=== PATIENT | female | born 1995 | race African-American/Black ===

== ENCOUNTER 2018-05-29 14:30 | Emergency (ER) | payer SELFPAY ==
[2018-05-29] MEDS ORDERED: HYDROCODONE/APAP 7.5/325 MG TAB ONE (15:47)
[2018-05-29] MEDS ORDERED: SMZ./TMP. 800/160 MG TABLET ONE (15:47)
[2018-05-29] MEDS ORDERED: LIDOCAINE 1% MPF 30 ML VIAL ONE (15:48)
--- NOTE | 2018-05-29 16:27 | EDPHYS ---
Physician Documentation [facility] Name: Donald Beebe Age: 22 yrs Sex: Female : 1995 Arrival Date: 05/29/2018 Time: 14:31 Bed 30 Private MD: ED Physician Angel Luis Rosado HPI: 05/29 15:45 This 22 yrs old Black Female presents to ER via EMS with complaints of Abdominal Pain. kb 15:45 The patient presents with an abscess of the right labia majora. Description: kb erythematous, swollen. Onset: The symptoms/episode began/occurred 1.5 week(s) ago. Possible cause(s): unknown. Associated signs and symptoms: Pertinent positives: swelling, Pertinent negatives: discharge, drainage, erythema, foreign body sensation, fever, headache, nausea, shortness of breath, vomiting. Modifying factors: the symptoms are alleviated by nothing, the symptoms are aggravated by nothing. Severity of symptoms: At their worst the symptoms were moderate, in the emergency department the symptoms are unchanged. The patient has not experienced similar symptoms in the past. The patient has not recently seen a physician. 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 - Social history:: Smoking status: unknown. - Ebola Screening: : No symptoms or risks identified at this time. ROS: 15:45 Constitutional: Negative for fever, chills, and weight loss, Cardiovascular: Negative kb for chest pain, palpitations, and edema, Respiratory: Negative for shortness of breath, cough, wheezing, and pleuritic chest pain, Abdomen/GI: Negative for abdominal pain, nausea, vomiting, diarrhea, and constipation, MS/Extremity: Negative for injury and deformity, Neuro: Negative for headache, weakness, numbness, tingling, and seizure. 15:45 Skin: Positive for abscess, of the right labia majora. Exam: 15:45 Constitutional: This is a well developed, well nourished patient who is awake, alert, kb and in no acute distress. Head/Face: Normocephalic, atraumatic. Chest/axilla: Normal chest wall appearance and motion. Nontender with no deformity. No lesions are appreciated. Cardiovascular: Regular rate and rhythm with a normal S1 and S2. No gallops, murmurs, or rubs. Normal PMI, no JVD. No pulse deficits. Respiratory: Lungs have equal breath sounds bilaterally, clear to auscultation and percussion. No rales, rhonchi or wheezes noted. No increased work of breathing, no retractions or nasal flaring. Abdomen/GI: Soft, non-tender, with normal bowel sounds. No distension or tympany. No guarding or rebound. No evidence of tenderness throughout. MS/ Extremity: Pulses equal, no cyanosis. Neurovascular intact. Full, normal range of motion. Neuro: Awake and alert, GCS 15, oriented to person, place, time, and situation. Cranial nerves II-XII grossly intact. Motor strength 5/5 in all extremities. Sensory grossly intact. Cerebellar exam normal. Normal gait. 15:45 Skin: abscess, that is moderate sized, of the right labia majora, with fluctuance. Vital Signs: 15:00 BP 146 / 70; Pulse 77; Resp 17; Temp 97.7; Pulse Ox 98% on R/A; Weight 113.4 kg; Pain sg 6/10; 17:02 BP 130 / 70; Pulse 77; Resp 18; Pulse Ox 100% on R/A; mg2 Procedures: 16:23 I \T\ D: Incision and drainage was performed for an abscess of the right Bartholin's kb gland. Prepped with Betadine, Anesthetized with 3 ml's 1% Lidocaine. Incised with #11 blade. Drained moderate amount serosanguinous fluid. Packed with word catheter. the patient tolerated the procedure well, procedure completed by KISHAN Alexis. MICHELE student. MDM: 15:17 Patient medically screened. kb 15:46 Data reviewed: vital signs, nurses notes. Data interpreted: Pulse oximetry: on room air kb is 98 %. Interpretation: normal. 16:22 Counseling: I had a detailed discussion with the patient and/or guardian regarding: the kb historical points, exam findings, and any diagnostic results supporting the discharge/admit diagnosis, the need for outpatient follow up, a general surgeon, an OB/Gyne specialist, to return to the emergency department if symptoms worsen or persist or if there are any questions or concerns that arise at home. 05/29 15:42 Order name: Urine Dipstick--Ancillary (enter results) eb 05/29 15:42 Order name: Urine --Ancillary (enter results) eb 05/29 15:29 Order name: Urine Dipstick-Ancillary (obtain specimen); Complete Time: 15:38 kb 05/29 15:29 Order name: Urine Test (obtain specimen); Complete Time: 15:38 kb 05/29 15:29 Order name: I\T\D Setup; Complete Time: 15:38 kb Administered Medications: 15:44 Drug: Bactrim (160 mg-800 mg (DS) 1 tablet Route: PO; mg2 16:50 Follow up: Response: No adverse reaction mg2 15:44 Drug: Norlina (7.5 mg-325 mg) 1 tabs Route: PO; mg2 16:50 Follow up: Response: No adverse reaction mg2 16:35 Drug: Lidocaine (1 %) 1 vials Volume: 5 ml; Route: Infiltration; mg2 16:49 Follow up: Response: No adverse reaction; Marked relief of symptoms mg2 16:49 Drug: Zofran 4 mg Route: PO; mg2 16:49 Follow up: Response: No adverse reaction; Medication administered at discharge. mg2 Disposition: 18:36 Co-signature as Attending Physician, Angel Luis Rosado MD. Disposition: 05/29/18 16:26 Discharged to Home. Impression: Abscess of Bartholin's gland. - Condition is Stable. - Discharge Instructions: Bartholin Cyst or Abscess, [id number]. - Prescriptions for Bactrim DS 800- 160 mg Oral Tablet - take 1 tablet by ORAL route every 12 hours for 10 days; 20 tablet. - Medication Reconciliation Form, Thank You Letter, Antibiotic Education, Prescription Opioid Use form. - Follow up: Emergency Department; When: As needed; Reason: Worsening of condition. Follow up: Private Physician; When: 2 - 3 days; Reason: Recheck today's complaints, Continuance of care, Re-evaluation by your physician. Signatures: Dispatcher [employer] EDSelina Mcdaniel FNP-C FNP-Ckb Gay, Steven, RN RN sg Angel Luis Rosado MD MD Fabio Pendleton RN RN mg2 Corrections: (The following items were deleted from the chart) 15:51 15:31 Allergies: No Known Allergies; sg mg2 16:27 16:23 I \T\ D: Incision and drainage was performed for an abscess of the right kb Bartholin's gland. Prepped with Betadine, Anesthetized with 3 ml's 1% Lidocaine. Incised with #11 blade. Drained moderate amount serosanguinous fluid. Packed with word catheter. the patient tolerated the procedure well, kb 17:03 16:26 05/29/2018 16:26 Discharged to Home. Impression: Abscess of Bartholin's gland. mg2 Condition is Stable. Forms are Medication Reconciliation Form, Thank You Letter, Antibiotic Education, Prescription Opioid Use. Follow up: Emergency Department; When: As needed; Reason: Worsening of condition. Follow up: Private Physician; When: 2 - 3 days; Reason: Recheck today's complaints, Continuance of care, Re-evaluation by your physician. kb
--- NOTE | 2018-05-29 16:27 | ER ---
Nurse's Notes [facility] Name: Donald Beebe Age: 22 yrs Sex: Female : 1995 Arrival Date: 05/29/2018 Time: 14:31 Bed 30 Private MD: Diagnosis: Abscess of Bartholin's gland Presentation: 05/29 14:58 Presenting complaint: EMS states: She has complaints of inner and outter vaginal bumps sg that are getting larger, reports abd pain above belly button, pt denied any trauma/ injury to the private area. reports abnormal vaginal discharge. Transition of care: patient was not received from another setting of care. Onset of symptoms was May 29, 2018. Risk Assessment: Do you want to hurt yourself or someone else? Patient reports no desire to harm self or others. Care prior to arrival: None. 14:58 Method Of Arrival: EMS: [facility] sg 14:58 Acuity: DANIEL 3 sg 16:53 Initial Sepsis Screen: Does the patient meet any 2 criteria? No. Patient's initial mg2 sepsis screen is negative. Does the patient have a suspected source of infection? No. Patient's initial sepsis screen is negative. 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 - Social history:: Smoking status: unknown. - Ebola Screening: : No symptoms or risks identified at this time. Screenin:48 Abuse screen: Denies threats or abuse. Denies injuries from another. Nutritional mg2 screening: No deficits noted. Tuberculosis screening: No symptoms or risk factors identified. Fall Risk None identified. Assessment: 15:45 General: Appears in no apparent distress. comfortable, Behavior is calm, cooperative. mg2 Pain: Complains of pain in pelvis and right labia majora and groin Pain does not radiate. Pain currently is 5 out of 10 on a pain scale. Quality of pain is described as aching, Pain began gradually, Is intermittent. Neuro: Level of Consciousness is awake, alert, obeys commands, Oriented to person, place, time, situation. Cardiovascular: Capillary refill < 3 seconds Patient's skin is warm and dry. Respiratory: Airway is patent Respiratory effort is even, unlabored, Respiratory pattern is regular, symmetrical. GI: Abdomen is round non-distended, Reports lower abdominal pain. : No signs and/or symptoms were reported regarding the genitourinary system. Urine is clear. EENT: No signs and/or symptoms were reported regarding the EENT system. Derm: Skin is intact, Skin is pink, warm \T\ dry. normal. Musculoskeletal: No signs and/or symptoms reported regarding the musculoskeletal system. 16:52 Reassessment: Patient appears in no apparent distress at this time. Patient and/or mg2 family updated on plan of care and expected duration. Pain level reassessed. Patient is alert, oriented x 3, equal unlabored respirations, skin warm/dry/pink. 16:53 GI: Bowel sounds Abd is soft and non tender. mg2 Vital Signs: 15:00 BP 146 / 70; Pulse 77; Resp 17; Temp 97.7; Pulse Ox 98% on R/A; Weight 113.4 kg; Pain sg 6/10; 17:02 BP 130 / 70; Pulse 77; Resp 18; Pulse Ox 100% on R/A; mg2 ED Course: 14:31 Patient arrived in ED. rg4 15:00 Triage completed. sg 15:00 Arm band placed on. EKG completed in triage. Results shown to MD. sg 15:17 Selina Guzman FNP-C [facility]. kb 15:17 Angel Luis Rosado MD is Attending Physician. kb 15:37 Fabio Pendleton RN is Primary Nurse. mg2 15:49 Patient did not have IV access during this emergency room visit. mg2 16:50 Assist provider with I \T\ D: of an abscess on Bartholin's gland Set up I\T\D tray. mg 2 Performed by eSlina TAVERAS Wound packed. Dressing with 4X4s, Patient tolerated well. 16:53 Patient has correct armband on for positive identification. Pulse ox on. NIBP on. mg2 Administered Medications: 15:44 Drug: Bactrim (160 mg-800 mg (DS) 1 tablet Route: PO; mg2 16:50 Follow up: Response: No adverse reaction mg2 15:44 Drug: [place] (7.5 mg-325 mg) 1 tabs Route: PO; mg2 16:50 Follow up: Response: No adverse reaction mg2 16:35 Drug: Lidocaine (1 %) 1 vials Volume: 5 ml; Route: Infiltration; mg2 16:49 Follow up: Response: No adverse reaction; Marked relief of symptoms mg2 16:49 Drug: Zofran 4 mg Route: PO; mg2 16:49 Follow up: Response: No adverse reaction; Medication administered at discharge. mg2 Outcome: 16:26 Discharge ordered by . gerald 16:52 Discharged to home ambulatory. mg2 16:52 Condition: good 16:52 Discharge instructions given to patient, Instructed on discharge instructions, follow up and referral plans. medication usage, Demonstrated understanding of instructions, follow-up care, medications, Prescriptions given X 1. 17:03 Patient left the ED. mg2 Signatures: Selina Guzman, FILLER SHREDDER-C FILLER SHREDDER-Rom Taylor, RN RN Alejandra Holland rg4 Fabio Pendleton RN RN mg2 Corrections: (The following items were deleted from the chart) 15:51 15:31 Allergies: No Known Allergies; mg2
[2018-05-29] MEDS ORDERED: ONDANSETRON 4 MG (ODT) TAB ONE (16:50)
[2018-05-29 20:28] LABS: Urine Blood NEGATIVE (NEG); Urine Glucose NEGATIVE (NEG); Urine Protein 1+ (NEG)
== END 2018-05-29 17:03 | disposition home or self-care (01) ==
LOC: ER 14:30
PROC: 0U9L0ZZ Drainage of Vestibular Gland, Open Approach (ICD-10-PCS; principal; 2018-05-29)
DX: N75.1 Abscess of Bartholin's gland (principal); Z88.1 Allergy status to other antibiotic agents
CPT/HCPCS: 81003; 81025; 99284

== ENCOUNTER 2019-02-19 11:34 | Emergency (ER) | payer SELFPAY ==
[2019-02-19] MEDS ORDERED: hydrOXYzine HCl 25 MG TAB ONE (12:05)
--- NOTE | 2019-02-19 12:05 | ER ---
Nurse's Notes [facility] Name: Donald Beebe Age: 23 yrs Sex: Female : 1995 Arrival Date: 02/19/2019 Time: 11:35 Bed 7 Private MD: Diagnosis: Panic disorder [episodic paroxysmal anxiety] without agoraphobia Presentation: 02/19 11:43 Presenting complaint: EMS states: pt was picked up by [employer],had a couple warrants, pt iw became very anxious and started hyperventilating. Transition of care: patient was not received from another setting of care. Onset of symptoms was February 19, 2019. Risk Assessment: Do you want to hurt yourself or someone else?. Initial Sepsis Screen: Does the patient meet any 2 criteria? No. Patient's initial sepsis screen is negative. Does the patient have a suspected source of infection? No. Patient's initial sepsis screen is negative. Care prior to arrival: None. 11:43 Method Of Arrival: EMS: [facility] iw 11:43 Acuity: DANIEL 3 iw Triage Assessment: 11:43 General: Behavior is anxious. iw 12:00 General: Appears in no apparent distress. iw 12:10 Respiratory: Reports Onset: The symptoms/episode began/occurred the patient reports iw symptoms have resolved. 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 - Ebola Screening: : Patient negative for fever greater than or equal to 101.5 degrees Fahrenheit, and additional compatible Ebola Virus Disease symptoms Patient denies exposure to infectious person Patient denies travel to an Ebola-affected area in the 21 days before illness onset No symptoms or risks identified at this time. - Social history:: Smoking status: unknown. Screenin:59 Abuse screen: Denies threats or abuse. Denies injuries from another. Nutritional iw screening: No deficits noted. Tuberculosis screening: No symptoms or risk factors identified. Fall Risk None identified. Assessment: 11:43 Reassessment: pt appears to be having a panic attack, hyperventilating, pt refuses to iw wear NRB mask, pt calmed down after a few minutes, officer remains at bedside. 11:45 Pain: Denies pain. Cardiovascular: Rhythm is regular. Respiratory: Airway is patent iw Respiratory effort is even, Breath sounds are clear bilaterally. 11:58 Reassessment: pt appears anxious again, hyperventilating, verbally encouraged to slow iw breathing down, pt calmed down enough to take hydroxyzine. Vital Signs: 11:30 BP 120 / 86; Pulse 96; Resp 20 S; Temp 98.2; Pulse Ox 100% on R/A; iw ED Course: 11:35 Patient arrived in ED. iw 11:35 Elton Francisco PA is PHCP. jr8 11:35 Jayro Titus MD is Attending Physician. jr8 11:45 Triage completed. iw 11:47 Arm band placed on. iw 11:48 Rocio Landry, RN is Primary Nurse. iw 11:59 No provider procedures requiring assistance completed. Patient did not have IV access iw during this emergency room visit. 12:13 Patient has correct armband on for positive identification. Bed in low position. Side aj rails up X 1. Administered Medications: 11:55 Drug: hydrOXYzine 50 mg Route: PO; iw Outcome: 12:05 Discharge ordered by . jr8 12:13 Discharged to home ambulatory. aj 12:13 Discharged to Law Enforcement 12:13 Condition: good 12:13 Instructed on discharge instructions, follow up and referral plans. 12:14 Patient left the ED. aj Signatures: Renetta Medina RN RN Rocio Landry RN RN Elton Francisco PA PA jr8 Corrections: (The following items were deleted from the chart) 11:57 11:40 Reassessment: pt appears to be having a panic attack, hyperventilating, pt iw refuses to wear NRB mask, pt calmed down after a few minutes, officer remains at bedside iw
--- NOTE | 2019-02-19 12:06 | EDPHYS ---
Physician Documentation [facility] Name: Donald Beebe Age: 23 yrs Sex: Female : 1995 Arrival Date: 02/19/2019 Time: 11:35 Bed 7 Private MD: ED Physician Jayro Titus HPI: 02/19 17:17 This 23 yrs old Black Female presents to ER via EMS with complaints of Anxiety, jr8 Hyperventilation. 17:17 The patient presents to the emergency department with anxiety. Onset: The jr8 symptoms/episode began/occurred acutely, today. Associated signs and symptoms: The patient has no apparent associated signs or symptoms. Severity of symptoms: At their worst the symptoms were moderate in the emergency department the symptoms are unchanged. It is unknown whether or not the patient has had similar symptoms in the past. The patient has not recently seen a physician. Patient was brought in by EMS in custody by police for warrant. Came to ED because she was very upset after being arrested. Denies any pain but stated that she is very anxious. Would not answer whether she has had a reaction like this before. 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 - Ebola Screening: : Patient negative for fever greater than or equal to 101.5 degrees Fahrenheit, and additional compatible Ebola Virus Disease symptoms Patient denies exposure to infectious person Patient denies travel to an Ebola-affected area in the 21 days before illness onset No symptoms or risks identified at this time. - Social history:: Smoking status: unknown. ROS: 17:17 Constitutional: Negative for fever, chills, and weight loss. jr8 17:17 Psych: Positive for anxiety, Negative for depression, auditory hallucinations, visual hallucinations, homicidal ideation, insomnia, suicide gesture, suicidal ideation. 17:17 All other systems are negative. Exam: 17:17 Eyes: Pupils equal round and reactive to light, extra-ocular motions intact. Lids and jr8 lashes normal. Conjunctiva and sclera are non-icteric and not injected. Cornea within normal limits. Periorbital areas with no swelling, redness, or edema. ENT: Nares patent. No nasal discharge, no septal abnormalities noted. Tympanic membranes are normal and external auditory canals are clear. Oropharynx with no redness, swelling, or masses, exudates, or evidence of obstruction, uvula midline. Mucous membranes moist. Neck: Trachea midline, no thyromegaly or masses palpated, and no cervical lymphadenopathy. Supple, full range of motion without nuchal rigidity, or vertebral point tenderness. No Meningismus. Cardiovascular: Regular rate and rhythm with a normal S1 and S2. No gallops, murmurs, or rubs. Normal PMI, no JVD. No pulse deficits. Respiratory: Lungs have equal breath sounds bilaterally, clear to auscultation and percussion. No rales, rhonchi or wheezes noted. No increased work of breathing, no retractions or nasal flaring. Abdomen/GI: Soft, non-tender, with normal bowel sounds. No distension or tympany. No guarding or rebound. No evidence of tenderness throughout. Back: No spinal tenderness. No costovertebral tenderness. Full range of motion. Skin: Warm, dry with normal turgor. Normal color with no rashes, no lesions, and no evidence of cellulitis. MS/ Extremity: Pulses equal, no cyanosis. Neurovascular intact. Full, normal range of motion. Neuro: Awake and alert, GCS 15, oriented to person, place, time, and situation. Cranial nerves II-XII grossly intact. Motor strength 5/5 in all extremities. Sensory grossly intact. Cerebellar exam normal. Normal gait. Psych: Awake, alert, with orientation to person, place and time. Appears very anxious and upset Vital Signs: 11:30 BP 120 / 86; Pulse 96; Resp 20 S; Temp 98.2; Pulse Ox 100% on R/A; iw MDM: 11:39 Patient medically screened. heath 12:05 Data reviewed: vital signs, nurses notes, and as a result, I will discharge patient. jr8 Data interpreted: Pulse oximetry: on room air is 100 %. Interpretation: normal. Counseling: I had a detailed discussion with the patient and/or guardian regarding: the historical points, exam findings, and any diagnostic results supporting the discharge/admit diagnosis, the need for outpatient follow up, a family practitioner, to return to the emergency department if symptoms worsen or persist or if there are any questions or concerns that arise at home. Response to treatment: the patient's symptoms have mildly improved after treatment. 17:17 ED course: Patient doing better after she calmed down and had the hydroxizine . jr8 Administered Medications: 11:55 Drug: hydrOXYzine 50 mg Route: PO; iw Disposition: 02/20 09:51 Co-signature as Attending Physician, Jayro Titus MD I agree with the assessment and heath plan of care. Disposition: 02/19/19 12:05 Discharged to Home. Impression: Panic disorder [episodic paroxysmal anxiety] without agoraphobia. - Condition is Stable. - Discharge Instructions: Panic Attacks. - Medication Reconciliation Form, Thank You Letter, Antibiotic Education, Prescription Opioid Use form. - Follow up: Private Physician; When: As needed; Reason: Recheck today's complaints, Continuance of care, Re-evaluation by your physician. - Problem is new. - Symptoms have improved. Signatures: Renetta Medina RN RN aj Anderson, Corey, MD MD cha Williams, Irene, RN RN iw Roszak, Josh, PA PA jr8 Corrections: (The following items were deleted from the chart) 02/19 12:14 12:05 02/19/2019 12:05 Discharged to Home. Impression: Panic disorder [episodic aj paroxysmal anxiety] without agoraphobia. Condition is Stable. Forms are Medication Reconciliation Form, Thank You Letter, Antibiotic Education, Prescription Opioid Use. Follow up: Private Physician; When: As needed; Reason: Recheck today's complaints, Continuance of care, Re-evaluation by your physician. Problem is new. Symptoms have improved. jr8
== END 2019-02-19 12:14 | disposition home or self-care (01) ==
LOC: ER 11:34
DX: F41.0 Panic disorder [episodic paroxysmal anxiety] (principal); Z88.1 Allergy status to other antibiotic agents
CPT/HCPCS: 99283